=== PATIENT | female | born 1950 | race African-American/Black ===

== ENCOUNTER 2017-08-28 10:39 | Emergency (ER) | payer OTHER ==
--- NOTE | 2017-08-28 11:27 | ED Physician Chart ---
ED Chief Complaint/HPI - Patient Information Date Seen:: 08/28/17 Time Seen:: 11:00 Chief Complaint:: right knee and right ankle pain History of Present Illness:: Patient's had right ankle, right knee and left ankle pain for many years. She has a brace on her right foot and ankle. She also complains of abdominal pain and constipation for 1 year. Allergies:: Allergies Allergy/AdvReac Type Severity Reaction Status Date / Time aspirin Allergy Verified 08/28/17 11:00 Penicillins Allergy Verified 08/28/17 11:00 Vitals:: Vital Signs - 8 hr 08/28/17 08/28/17 10:51 11:18 Temp 97.9 F HR 90 RR 16 BP 191/110 198/101 O2 Sat % 100 Historian:: Patient Review:: Nurse's Note Reviewed ED Review of Systems - Review of Systems General/Constitutional: No fever, No chills, No weight loss, No weakness, No diaphoresis, No edema, No loss of appetite Skin: No skin lesions, No rash, No bruising Head: No headache, No light-headedness Eyes: No loss of vision, No pain, No diplopia ENT: No earache, No nasal drainage, No sore throat, No tinnitus Neck: No neck pain, No swelling, No thyromegaly, No stiffness, No mass noted Cardio Vascular: No chest pain, No palpitations, No PND, No orthopnea, No edema Pulmonary: No SOB, No cough, No sputum, No wheezing GI: No nausea, No vomiting, No diarrhea, No pain, No melena, No hematochezia, No constipation, No hematemesis G/U: No dysuria, No frequency, No hematuria Musculoskeletal: Bone or joint pain Endocrine: No polyuria, No polydipsia Psychiatric: No prior psych history, No depression, No anxiety, No suicidal ideation Hematopoietic: No bruising, No lymphadenopathy Allergic/Immuno: No urticaria, No angioedema Neurological: No syncope, No focal symptoms, No weakness, No paresthesia, No headache, No seizure, No dizziness, No confusion, No vertigo ED Past Medical History - Past Medical History Past Medical History: HTN, Other (acid reflux) Family History: Heart disease Social History: Non Smoker, No Alcohol Surgical History: other (abdominal surgeries and right foot and right ankle surgery) Psychiatricy History: None Medication: Reviewed Family Medical History - Family Member Father Ethnicity: Non- Hx Family Coronary Artery Disease: Yes ED Physical Exam - Physical Examination General/Constitutional: Awake, Well-developed, well-nourished, Alert, No distress Other Gen/Cons comments:: Patient is tearful Head: Atraumatic Eyes: Lids, conjuctiva normal, PERRL Skin: Nl inspection, No rash ENMT: External ears, nose nl, TM canals nl, Nasal exam nl Other ENMT comments:: Edentulous Neck: No nuchal rigidity Respiratory: Nl effort/Exclusion, Clear to Auscultation Cardio Vascular: RRR, No murmur, gallop, rubs, NL S1 S2 GI: No tenderness/rebounding/guarding : No CVA tenderness Other Extremities comments:: Brace present right foot right ankle Neuro/Psych: No focal deficits Misc: Normal back ED Labs/Radiology/EKG Results - Lab Results Results: Laboratory Results - last 24 hr 08/28/17 08/28/17 08/28/17 11:35 11:53 11:53 WBC 5.0 RBC 4.27 Hgb 11.1 L Hct 34.3 L MCV 80.3 L MCH 26.0 L MCHC Differential 32.3 RDW 14.8 Plt Count 655 H MPV 6.3 Neutrophils % 65.7 Lymphocytes % 24.7 Monocytes % 8.2 Eosinophils % 1.1 Basophils % 0.3 Sodium 137 Potassium 3.9 Chloride 106 Carbon Dioxide 24.8 Anion Gap 10.1 BUN 10 Creatinine 0.7 Est GFR ( Amer) > 60.0 Est GFR (Non-Af Amer) > 60.0 BUN/Creatinine Ratio 14.3 Glucose 101 Calcium 9.6 Magnesium 1.9 Lipase 9 L Urine Source RANDOM Urine Color YELLOW Urine Clarity HAZY Urine pH 5.5 Ur Specific [place] 1.025 Urine Protein NEGATIVE Urine Glucose (UA) NEGATIVE Urine Ketones NEGATIVE Urine Blood NEGATIVE Urine Nitrate NEGATIVE Urine Bilirubin NEGATIVE Urine Urobilinogen 0.2 Ur Leukocyte Esterase MODERATE H Urine RBC 0-2 Urine WBC >100 H Ur Epithelial Cells OCCASIONAL Urine Bacteria MANY H ` - Radiology Results Results: KUB did not show increased stool but did show a lot of arthritis and scoliosis of the lumbar spine. ED Assessment - Assessment General Assessment: Patient has a urinary tract infection. She has had intermittent fever. ED Septic Shock - . Is Septic Shock (SBP<90, OR Lactate>4 mmol\L) present?: No - <6hrs of presentation: Vital Signs: Vital Signs - 8 hr 08/28/17 08/28/17 10:51 11:18 Temp 97.9 F HR 90 RR 16 BP 191/110 198/101 O2 Sat % 100 ED Reassessment (Disposition) - Reassessment Reassessment:: Patient felt better after the intermuscular injections Toradol 30 mg. The patient has a lot of arthritis in her lumbar spine. I suggested she follow up with a pain management physician at [place]. Reassessment Condition:: Improved - Diagnosis Diagnosis:: Urinary tract infection; severe arthritis - Aftercare/Follow up Instructions Aftercare/Follow-Up Instructions:: Refer to Discharge Instructions Medication Prescribed:: Cipro 500 mg twice a day for 10 days - Patient Disposition Discharge/Transfer:: Home Condition at Disposition:: Stable, Improved
[2017-08-28 12:04] LABS: % BASOPHILS 0.3 % (0.0-2.0); % EOSINOPHILS 1.1 % (0.0-5.0); % LYMPHOCYTES 24.7 % (20.0-50.0); % MONOCYTES 8.2 % (2.0-10.0); % NEUTROPHILS 65.7 % (40.0-80.0); EOSINOPHILE ABSOLUTE 0.1 Th/cmm (0.1-0.4); HEMATOCRIT 34.3 % (41.0-60); HEMOGLOBIN 11.1 gm/dL (12-16); LYMPHOCYTE ABSOLUTE 1.2 Th/cmm (1.5-3.0); MEAN CELL VOLUME 80.3 fl (81-100); MEAN CORPUSCULAR HGB CONC 32.3 pg (28.0-36.0); MEAN PLATELET VOLUME 6.3 fl; MONOCYTE ABSOLUTE 0.4 Th/cmm (0.3-1.0); NEUTROPHILE ABSOLUTE 3.3 Th/cmm (1.8-8.0); PLATELET COUNT 655 Th/cmm (150-400); RED BLOOD COUNT 4.27 Mil/cmm (3.80-5.20); RED CELL DISTRIBUTION WIDTH 14.8 % (11.5-20.0)
[2017-08-28 12:06] LABS: URINE MICROSCOPIC INDICATED? YES; URINE SOURCE RANDOM
[2017-08-28 12:12] LABS: URINE BILIRUBIN NEGATIVE (NEGATIVE); URINE BLOOD NEGATIVE (NEGATIVE); URINE GLUCOSE (UA) NEGATIVE (NEGATIVE); URINE KETONE NEGATIVE (NEGATIVE); URINE LEUKOCYTE ESTERASE MODERATE (NEGATIVE); URINE NITRATE NEGATIVE (NEGATIVE); URINE PH 5.5 (4.6 - 8.0); URINE PROTEIN NEGATIVE (NEGATIVE); URINE UROBILINOGEN 0.2 E.U./dL (0.2 - 1.0)
[2017-08-28 12:20] LABS: URINE CLARITY HAZY (CLEAR); URINE COLOR YELLOW
[2017-08-28 12:22] LABS: ANION GAP 10.1 (7.0-16.0); BUN - UREA NITROGEN 10 mg/dL (7-25); CALCIUM SERUM 9.6 mg/dL (8.6-10.3); CARBON DIOXIDE 24.8 mEq/L (21.0-31.0); CHLORIDE 106 mEq/L (98-107); CREATININE - SERUM 0.7 mg/dL (0.6-1.2); GFR AFRICAN-AMERICAN > 60.0 ml/min (>90); GFR NON AFRICAN-AMERICAN > 60.0 ml/min; GLUCOSE 101 mg/dL (70-105); LIPASE 9 U/L (11-82); MAGNESIUM 1.9 mg/dL (1.9-2.7); POTASSIUM SERUM 3.9 mEq/L (3.5-5.1); SODIUM SERUM 137 mEq/L (136-145)
[2017-08-28 12:23] LABS: URINE RBC 0-2 /hpf (0-5)
[2017-08-28 12:24] LABS: URINE BACTERIA MANY /hpf (NONE SEEN); URINE EPITHELIAL CELLS OCCASIONAL /lpf (FEW); URINE WBC >100 /hpf (0-5)
--- NOTE | 2017-08-28 13:14 | Diagnostic Imaging Report ---
KUB abdominal film (portable) HISTORY: Pain The exam demonstrates a nonspecific gas pattern of nondilated bowel. No free and. No air. Nondistended stool-filled large bowel noted. Surgical clips noted over the lower abdomen and pelvis. Severe degenerative changes seen throughout the spine along with the scoliosis in the lumbar region convexity to the left. IMPRESSION: 1. Stool-filled nondilated large bowel. Findings may be associated with changes of constipation. No other acute abnormalities
== END 2017-08-28 13:30 | disposition home or self-care (01) ==
LOC: ER 10:39
DX: M13.871 Other specified arthritis, right ankle and foot (principal); M13.861 Other specified arthritis, right knee; N39.0 Urinary tract infection, site not specified; I10 Essential (primary) hypertension; Z88.0 Allergy status to penicillin; Z88.6 Allergy status to analgesic agent
CPT/HCPCS: 99285; 96372; 74018; 36415; 85025; 87086; 81001; 83690; 83735; 80048; J1885; 74000-TC; Z7610